=== PATIENT | female | born 1985 | race Caucasian/White ===

== ENCOUNTER → 2017-11-22 | Outpatient (CLI) | payer OTHER ==
[~2017-11-22] MED LIST: ALBU1AER9 PO; BCPILLS PO; CITA40TA12 PO; DICY10CA55 PO
--- NOTE | 2017-11-23 08:34 | PAP/PSG TECHNICIAN REPORT ---
[facility] Accredited Farm Manager Polysomnogram Report Study name: None Report date: 11/23/2017 Study date: 11/22/2017 Referring Physician: Dr. Millie King M.D. Name: WALKER HAMILTON Interpreting Physician: Sree Simms M.D. Date of : 1985 Accredited Farm Manager: Leslie Beavers, PSGT. Sex: Female Age: 32 StudyType: PSG Weight: 159 lbs Height: 32 years, Height 5' 8" Neck Circum:13.5 inches BMI: 24.17 Medications: Wellbutrin Sr 100 mg, Prozac 20 mg, Aristocort 0.1% ... Patient History 32 yr. old female in room 7, presents tonight for a diagnostic sleep study.Paient states that she snores, excessive daytime sleepiness, has vivid dreams and is a restless sleeper.ESS= , Neck = 13.5 inches. Parameters Monitored NPSG: E1-M2, E2-M1, Fp1-M2, Fp2-M1, F3-M2, F4-M2, F4-M1, C3-M2, C4-M2, C4-M1, O1-M2, O2-M2, O2-M1, T3-M2, T4-M1, P3-M2, P4-M1, CHIN1, CHIN2, HR, EKG, Legs, PFLOW, SNOR, FLOW, CFLOW, Tidal Volume, THOR, ABDO, SpO2, PLTH, CPRESS, ETCO2 Wave, ETCO2, pH Sleep Architecture Sleep Stages Time at Lights Off 10:56:34 PM STAGES Time (min.) TST (%) Time at Lights On 5:53:34 AM Wake 53.5 -- Total Recording Time (TRT) 418.00 min. N1 17.5 5 Total Sleep Period (TSP) 392.5 min. N2 243.5 67 Total Sleep Time (TST) 363.5min. N3 19.5 5 Awake Time 53.5 min. REM 83.0 23 Wake after Sleep Onset 29.0 min. Sleep Efficiency (SE) 87 % Sleep Onset Latency (LION) 24.5 min. Number of Stage 1 Shifts None Awakenings 12 Stage Changes 62 Number of REM periods 3 REM 83.0 23 REM Latency 227.5 min. NREM 280.5 77 Body Position Analysis Supine Right Left Side Prone Vertical Total Sleep Time (min.) 368.3 46.4 0.0 46.43 0.0 0.0 Total Sleep Time (%) 87% 13% 0% 13 0% N/A% Total Sleep Time REM (min.) 77.0 6.0 0.0 None 0.0 0.0 Total Sleep Time NREM (min.) 240.1 40.4 0.0 None 0.0 0.0 Intermittent Wake (min.) 51.3 2.2 0.0 None 0.0 0.0 Total Sleep Period (%) 88% None None None None None Arousals Myoclonus (PLM) * Events Count Index Events Count Index Spontaneous 103 17 Events Awake (PLMW) 1 1.1 Respiratory 3 0.5 Events Asleep w/ Arousal (PLMA) 4 0.7 PLM 4 1 Events Asleep w/o Arousal (PLMS) 95 15.7 Snoring 25 4 Total Asleep 99 16.3 Total 131 22 Total 100 14 Respiratory Analysis * CA OA MA CH H RERA Total Count 0 0 0 0 6 0 6 Index 0.0 0.0 0.0 0 1.0 0 1.0 Mean Duration 0.0 0.0 0.0 0.00 21.3 0.0 21.3 Longest Duration 0.0 0.0 0.0 0.00 0.0 0.0 26.2 Respiratory Event Summary Total Supine ~Supine Right Left Prone REM NREM Apneas Count 0 0 0 0 N/A N/A 0 0 Index 0.0 0 0 0.0 N/A N/A 0 0 Hypopneas (4% Desat) Count 6 6 0 0 N/A N/A 0 6 Index 1.0 1.1 0 0.0 N/A N/A 0.0 1.3 Apneas & All Hypopneas Count 6 6 0 0 N/A N/A 0 6 Index 1.0 1 0 0 N/A N/A 0.0 1.3 Respiratory Events (Student Worker+All Hyp+RERA) Count 6 6 0 0 N/A N/A 0 6 Index 1.0 1 0 0.0 N/A N/A 0.0 1.3 Respiratory Related Arousal Count 3 6 0 0 N/A N/A 0 3 Index 0.5 1 0 0 N/A N/A 0 1 Snoring Analysis Supine Right Left Prone REM NREM Total Snore duration 15.4 min Snores count 618 5 N/A N/A 113 510 623 Snore mean duration 1.5 Sec Snores index 117 6 N/A N/A 81.7 109.1 102.8 TST with snoring (%) 4.2% Desaturation Event Summary: Minimum %SpO2 Event Count Mean/Min/Max Duration(sec.) Desaturation Index % Time In Bed > 90 9 32.6 / 14.0 / 59.3 1.3 99.9 86 - 90 0 N/A 0.0 0.1 81 - 85 0 N/A 0.0 0.0 76 - 80 0 N/A 0.0 0.0 71 - 75 0 N/A 0.0 0.0 66 - 70 0 N/A 0.0 0.0 61 - 65 0 N/A 0.0 0.0 56 - 60 0 N/A 0.0 0.0 51 - 55 0 N/A 0.0 0.0 < 50 0 N/A 0.0 0.0 Total REM NREM Awake <50% 0.0 min. 0.0 min. 0.0 min. 0.0 min. 51 - 60% 0.0 min. 0.0 min. 0.0 min. 0.0 min. 61 - 70% 0.0 min. 0.0 min. 0.0 min. 0.0 min. 71 - 80% 0.0 min. 0.0 min. 0.0 min. 0.0 min. 81 - 90% 0.3 min. 0.0 min. 0.3 min. 0.0 min. 91 - 100% 416.7 min. 83.0 min. 280.2 min. 53.5 min. Average 95 96 95 95 Minimum SpO2 90 93 90 91 Desaturation Event Index 1.3 0.7 1.7 0.0 # Desat. Events below 89% N/A N/A N/A N/A Time(%) with Saturation below 89% 0.0 0.0 0.0 0.0 Time(min.) with Saturation below 89% 0.0 0.0 0.0 0.0 Time (mins) REM (mins) NREM (mins) % of TST SpO2 Below 90% 1 N/A N1 0.0 SpO2 Below 88% 0 0 0 0 Heart Rate Analysis Min (bpm) Max (bpm) Average (bpm) Awake 55 97 64 NREM 56 83 65 REM 58 85 69 Overall 56 85 66 Supplemental O2 Values Minimum O2 level: None Value Start Time End Time Accredited Farm Manager Comments PSG Study MS. Hamilton slept in the right, supine positions. No cardiac arrhythmia or PLM's noted. No bruxism noted. Snoring was noted and scored as a 2 on a scale of 1 through 5. (0=no snoring, 5=snoring loud enough to be heard through a closed door or down the [place] way) Ms. Hamilton awoke to use the restroom zero times during the night. Ms. Hamilton stated, I did sleep as well as I do when I am in my own bed. The final report will be interpreted and signed by a sleep physician. The completed physician report will then be placed in the patient medical record Therapy (cm H2O) 0 TIB (min.) 417.0 TST (min.) 363.5 Sleep Onset (min.) 24.5 REM Onset From Sleep (min.) 227.5 Sleep Efficiency % 87 Wakefulness (%) 13 Wakefulness (min.) 53.5 NREM 1 (%) 5 NREM 1 (min.) 17.5 NREM 2 (%) 67 NREM 2 (min.) 243.5 NREM 3 (%) 5 NREM 3 (min.) 19.5 REM (%) 23 REM (min.) 83.0 # Arousals 131 Arousal Index 22 # Snore 623 Snore Index 102.8 AHI 1.0 AHI Supine 1 AHI Non-Supine 0 NREM AHI 1.3 REM AHI 0.0 RDI 1.0 # Obstructive Apnea 0 # Central Apnea 0 # Mixed Apnea 0 # Hypopneas 6 RERAs 0 Total Respiratory Events 7 Time Below SpO2 89% (min.) 0.0 Mean NREM SpO2 (%) 95 Mean REM SpO2 (%) 96 Mean Sleep SpO2 (%) 95 Min NREM SpO2 (%) 90 Min REM SpO2 (%) 93 Position Supine (min.) 368.3 Position Non-supine (min.) 46.4 LM Index Sleep 16.3 LM Index NREM 16.3 LM Index REM 16.6 Mean Heart Rate (bpm) 66 Min Heart Rate (bpm) 56
--- NOTE | 2017-11-25 11:47 | POLYSOMNOGRAPH REPORT ---
CLINICAL DATA: A 32-year-old female with BMI of 24.[address] King for a diagnostic sleep study. She snores, has excessive daytime sleepiness, has vivid dreams, and is a restless sleeper. SLEEP ARCHITECTURE: Total sleep period was 392.5 minutes. Total sleep time was 363.5 minutes divided between 280.5 minutes of non-REM sleep and 83 minutes of REM sleep. Sleep latency was 24.5 minutes. REM latency was 227.5 minutes. Sleep efficiency was 87%. Wake after sleep onset was 29 minutes. Sleep consisted of stage N1 5%, stage N2 67%, stage N3 5%, and REM 23%. AROUSAL DATA: 131 arousals were recorded for an index of 22 per hour. 103 were spontaneous arousals. PLM DATA: 99 limb movements during sleep were noted for an index of 16.3 per hour with arousal index of 0.7 per hour. RESPIRATORY DATA: There was no evidence of clinically significant sleep apnea seen. The AHI was 1. There were 6 hypopneic episodes with a mean duration of 21.3 seconds. OXIMETRY DATA: No hypoxemia was seen. Oxygen jillian was 90%. Mean saturation was 95%. EKG: Heart rate ranged from 56-85 beats per minute. No arrhythmias were noted. ADVISORY SOFTWARE ENGINEER'S COMMENTS: The patient slept in the right and supine positions. No bruxism was noted. Snoring was mild, rated 2 on a scale of 1-5. IMPRESSION: No evidence of clinically significant sleep apnea/hypopnea, nocturnal hypoxemia, or abnormal limb movement events during sleep to explain this patient's symptoms. RECOMMENDATIONS: The patient should continue to practice good sleep hygiene. [facility]ENTER[facility]ory
== END | disposition home or self-care (01) ==
LOC: C.NEUR 21:00
PROVIDERS: ATTEND Internal Medicine
DX: R06.83 Snoring (principal); G47.10 Hypersomnia, unspecified